=== PATIENT | male | born 1930 | race Caucasian/White ===

== ENCOUNTER 2016-07-10 09:25 | Outpatient (CLI) | payer MEDICARE, OTHER | END 2016-07-10 09:26 | disposition short-term general hospital (02) | LOC: EMS 09:25 | PROVIDERS: ATTEND Surgery | DX: M54.2 Cervicalgia (principal); R46.4 Slowness and poor responsiveness; W18.30XA Fall on same level, unspecified, initial encounter; Y92.002 Bathroom of unspecified non-institutional (private) residence as the place of occurrence of the external cause | CPT/HCPCS: A0170; A0425; A0427 ==